=== PATIENT | female | born 1975 | race Caucasian/White ===

== ENCOUNTER 2019-04-10 14:44 | Emergency (ER) | payer BC ==
[2019-04-10 14:59] VITALS: BP 117/74
--- NOTE | 2019-04-10 15:19 | UC ---
Bite Injury/Animal HPI - HPI Summary HPI Summary: 44 y/o female presents to the urgent care c/o his dog bit her left thumb about 1430pm today s/p trying to take a toy out of his mouth. Pt states her dog is UTD w/ all immunizations. She states her last tetanus vaccine was in 07/2015 when she had her baby. Pt states pain is 3/10 at touch and bleeding stop w/ pressure. She irrigated well wound and she can move her thumb w/o any difficulty. She states mild numbness around the bite. She states her dog has never done that in the past and felt very sorry after incident. Pt denies fever , SOB, chest pain, abdominal pain, N/V/d. - History of Current Complaint Chief Complaint: UCBiteInjury Stated Complaint: DOG BITE Time Seen by Provider: 04/10/19 15:09 Hx Obtained From: Patient Hx Last Menstrual Period: 2 days ago ?: No Severity Currently: Mild Severity Initially: Mild Pain Intensity: 3 Pain Scale Used: 0-10 Numeric Onset/Duration: Sudden Onset, Lasting Hours - 1 hrs ago, Still Present Type of Bite: Animal - dog bite Has Animal Been Immunized?: Yes Character: Abrasion/Laceration - laceration on the dorsal side of the distal left thumb Aggravating Factor(s): Other - touch Alleviating Factor(s): Rest Associated Signs And Symptoms: Positive: Numbness/Tingling - mild. Negative: Fever, Erythema, Drainage, Swelling, Lymphadenopathy Animal Available for Observation: Yes Animal Control Notified: Yes - Risk Factors Infection/Sepsis Risk Factors: Negative - Allergies/Home Medications Allergies/Adverse Reactions: Allergies Allergy/AdvReac Type Severity Reaction Status Date / Time No Known Allergies Allergy Verified 04/10/19 14:59 PMH/Surg Hx/FS Hx/Imm Hx Previously Healthy: Yes Other Endocrine History: Idiopathic thrombocytopenia - Surgical History Surgical History: None - Family History Known Family History: Positive: Cardiac Disease, Hypertension - Social History Occupation: Employed Full-time Lives: With Family Alcohol Use: Rare Substance Use Type: None Smoking Status (MU): Never Smoked Tobacco - Immunization History Most Recent Influenza Vaccination: 03/14/15 Most Recent Tetanus Shot: 07/25/15 Most Recent Pneumonia Vaccination: none Hx Tetanus, Diphtheria Vaccination: Yes Review of Systems All Other Systems Reviewed And Are Negative: Yes Skin: Positive: Other - dog bite laceration on the dorsal side of the distal left thumb Eyes: Positive: Negative ENT: Positive: Negative Respiratory: Positive: Negative Cardiovascular: Positive: Negative, Palpitations Genitourinary: Positive: Negative Motor: Positive: Negative Neurovascular: Positive: Negative Musculoskeletal: Positive: Other: - left thumb pain s/p dog bite Neurological: Positive: Numbness - mild numbness over the left thumb s/p dog bite Psychological: Positive: Negative Is Patient Immunocompromised?: No Physical Exam - Summary Physical Exam Summary: Vital Signs Reviewed: Yes General: well developed, well nourished female sitting in the examining table w/ o any apparent distress Eye Exam: Normal Eyes: Positive: Conjunctiva Clear - PERRLA, EOMI, fundi grossly normal ENT: Positive: Normal ENT inspection, Hearing grossly normal, Pharynx normal, TMs normal Neck: Positive: Supple, Nontender, No Lymphadenopathy Respiratory: Positive: Chest non-tender, Lungs clear, Normal breath sounds, No respiratory distress Cardiovascular: Positive: RRR, No Murmur, Pulses Normal, Brisk Capillary Refill Abdomen Description: Positive: Nontender, No Organomegaly, Soft. Negative: CVA Tenderness (R), CVA Tenderness (L) Bowel Sounds: Positive: Present Musculoskeletal: Positive: Strength Intact, ROM Intact, No Edema Neurological: Positive: Alert, Muscle Tone Normal Psychological Exam: Normal Skin: Positive:Dorasl side of the distal left thumb w/ with a linear laceration about 1.5cm x .05 in in size, non bleeding, no foreign body observed. mild tenderness to palpation, No ecchymosis or bruise observed. FROM of left thumb and left hand, sensation intact, capillary refill brisk, and pulses WNL. Triage Information Reviewed: Yes Vital Signs: Initial Vital Signs Temp 97 F 04/10/19 14:54 Pulse 65 04/10/19 14:54 Resp 16 04/10/19 14:54 BP 117/74 04/10/19 14:54 Pulse Ox 98 04/10/19 14:54 Procedures - Laceration/Wound Repair 1 Location: upper extremity - left thumb superficial linear laceration s/p dog bite about 1.5cm in size Description: Linear Anesthesia: Digital, 1.0% - 2ml Betadine Prep?: Yes Irrigated w/ Saline (ccs): 250 - w/ a lot pf pressure Laceration/Wound Explored: contaminated - dog bite Closure: Single Layer - 1 suture aproximation of wound Suture Type: Nylon - 5.0 Layer Closure?: No Sterile Dressing Applied?: Yes Bite Injury Course/Dx - Course Course Of Treatment: 44 y/o female presents to the urgent care c/o his dog bit her left thumb about 1430pm today s/p trying to take a toy out of his mouth. Pt states her dog is UTD w/ all immunizations. She states her last tetanus vaccine was in 07/2015 when she had her baby. Pt states pain is 3/10 at touch and bleeding stop w/ pressure. She irrigated well wound and she can move her thumb w/o any difficulty. She states mild numbness around the bite. She states her dog has never done that in the past and felt very sorry after incident. Pt denies fever , SOB, chest pain, abdominal pain, N/V/d. Hx obtained. Pt w/ Dorasl side of the distal left thumb w/ with a linear laceration about 1.5cm x .05 in in size, non bleeding, no foreign body observed. mild tenderness to palpation, No ecchymosis or bruise observed. FROM of left thumb and left hand, sensation intact, capillary refill brisk, and pulses WNL. on examination. Left thumb X-ray ordered: REPORT AND IMPRESSION: #. Fusiform soft tissue swelling. No visualized subcutaneous emphysema or conspicuous foreign body. Negative for fracture or articular malalignment. Mild polyarticular osteoarthritis.LACERATION PROCEDURE NOTE: . Copious irrigation was done with saline by the nurse and the wound explored. There was no FB or deep structure injury noted. FROM of left thumb. procedure was explained and consent obtained, Timeout performed. The wound was anesthetized with 2 mL of 1% lido by digital block with good anesthesia. Sterile drape and prep were done. There was 1 suture with 5.0 nylon type of suture to approximate wound. The length of the wound after closure was 1.5cm. No debridement done. Pt tolerated the procedure well without adverse effects.Wound applied Bacitracin oint and dressed w/ sterile gauze by the nurse. Neurovascular intact and FROM of left thumb. Pt Rx Augmentin PO and Bacitracin oint as directed below. Pt advised to f/u 1 suture removal in 10 days and if any signs of infection develop to immediately return to the urgent care of PCP for further management and treatment. Strongly advised close observation on your dog's behavior and notify the health department of the incident. Pt understood and agreed and left the clinic ambulating A&Ox3. - Differential Dx/Diagnosis Differential Diagnosis/HQI/PQRI: Crush Injury, Laceration, Rabies Exposure, Superficial Infection, Deep Space Infection Provider Diagnosis: Dog bite of left thumb, Laceration of left thumb Discharge ED - Sign-Out/Discharge Documenting (check all that apply): Patient Departure - D/C home All imaging exams completed and their final reports reviewed: Yes - Discharge Plan Condition: Stable Disposition: HOME Prescriptions: Amoxicillin/Clavulanate TAB* [Augmentin TAB 875*] 875 mg PO BID #20 tab Bacitracin OINTMENT* 1 applic TOPICAL BID #1 tube Patient Education Materials: Animal Bite (ED), Finger Laceration (ED) Referrals: Romulo Galvan MD [Primary Care Provider] - 1 Week Additional Instructions: 1-Please take full course of antibiotic to avoid resistance. Take yogurts w/ probiotics or culturelle to protect your GI system 2- Keep wound clean and dry and avoid excessive movement w/ your Thumb. 3- F/u 1 suture removal in 10 days w/ your PCP or here at the urgent care. 4-Take Ibuprofen or Tylenol PO q6-8hrs prn for pain or swelling. 5- If you develop fever or redness around your finger despite the antibiotic please go to the ER immediately or return to the Urgent care. 6- Please close observation on your dog's behavior and notify the health department of the incident. - Billing Disposition and Condition Condition: STABLE Disposition: Home
[2019-04-10] MEDS ORDERED: Lidocaine 1% MPF ** 5 ML VIAL INJ ONE (15:30)
== END 2019-04-10 16:10 | disposition home or self-care (01) ==
LOC: UCEAST 14:44
DX: S61.052A Open bite of left thumb without damage to nail, initial encounter (principal); S61.012A Laceration without foreign body of left thumb without damage to nail, initial encounter; Z23 Encounter for immunization; W54.0XXA Bitten by dog, initial encounter; Y92.9 Unspecified place or not applicable
CPT/HCPCS: 12001; 90471; 99202; G0463